=== PATIENT | female | born 1965 | race Two or more races ===

== ENCOUNTER 2017-07-20 14:32 | Emergency (ER) | payer BC ==
[2017-07-20] MEDS: HYDROcodone/APAP 5/325MG 1 TAB TABLET PO (16:16)
== END 2017-07-20 16:32 | disposition home or self-care (01) ==
LOC: ER 14:32
DX: S61.217A Laceration without foreign body of left little finger without damage to nail, initial encounter (principal); E11.9 Type 2 diabetes mellitus without complications; X58.XXXA Exposure to other specified factors, initial encounter; Y93.89 Activity, other specified; Y92.89 Other specified places as the place of occurrence of the external cause; Y99.8 Other external cause status
CPT/HCPCS: 73140; 99284

== ENCOUNTER 2019-07-09 19:58 | Emergency (ER) | payer SELFPAY ==
[~2019-07-09] VITALS: Ht 165.1 cm; Wt 61.7 kg
[~2019-07-09 19:58] MED LIST: CEPH500T PO
[2019-07-09 20:18] VITALS: BP 142/72
[2019-07-09] MEDS ORDERED: CYCLOBENZAPRINE 10 MG TABLET. PO ONE (20:30)
[2019-07-09] MEDS ORDERED: HYDROcodone/APAP 5/325MG 1 TAB TABLET PO ONE (20:30)
--- NOTE | 2019-07-09 21:57 | RAD ---
EXAM: Frontal chest with 3 view right rib series. HISTORY: Right chest pain. COMPARISON: None. FINDINGS: There is a calcified granuloma in the right upper lobe. There are no confluent infiltrates. There is no pneumothorax or pleural effusion. The heart is not enlarged. Cholecystectomy clips are noted. There are no displaced right rib fractures. IMPRESSION: 1. No displaced right rib fractures. Electronically signed by: Michael Bobo MD (07/09/2019 9:54 PM) [facility]
[2019-07-09] MEDS ORDERED: HYDR-3164 PO (22:08)
[2019-07-09] MEDS ORDERED: CYCL10TA2 PO (22:08)
--- NOTE | 2019-07-09 22:08 | PHYS DOC ---
Past Medical History Past Medical History: Diabetes-Type II Past Surgical History: No Surgical History Alcohol Use: None Drug Use: None Adult General Chief Complaint Chief Complaint: ABDOMINAL PAIN HPI HPI Patient is a 54 year old [f__sex] who presents with [] Review of Systems Review of Systems Constitutional: Denies fever or chills [] Eyes: Denies change in visual acuity, redness, or eye pain [] HENT: Denies nasal congestion or sore throat [] Respiratory: Denies cough or shortness of breath [] Cardiovascular: No additional information not addressed in HPI [] GI: Denies abdominal pain, nausea, vomiting, bloody stools or diarrhea [] : Denies dysuria or hematuria [] Musculoskeletal: Denies back pain or joint pain [] Integument: Denies rash or skin lesions [] Neurologic: Denies headache, focal weakness or sensory changes [] Endocrine: Denies polyuria or polydipsia [] All other systems were reviewed and found to be within normal limits, except as documented in this note. Current Medications Current Medications Current Medications Medications (Trade) Dose Ordered Sig/Faye Start Time Stop Time Status Last Admin Dose Admin Acetaminophen/ Hydrocodone Bitart (Lortab 5/325) 1 tab 1X ONCE 07/09/19 20:30 07/09/19 20:31 DC 07/09/19 20:32 1 TAB Cyclobenzaprine HCl (Flexeril) 10 mg 1X ONCE 07/09/19 20:30 07/09/19 20:31 DC 07/09/19 20:32 10 MG Allergies Allergies Allergies Coded Allergies Type Severity Reaction Last Updated Verified No Known Drug Allergies 07/20/17 No Physical Exam Physical Exam Constitutional: Well developed, well nourished, no acute distress, non-toxic appearance. [] HENT: Normocephalic, atraumatic, bilateral external ears normal, oropharynx moist, no oral exudates, nose normal. [] Eyes: PERRLA, EOMI, conjunctiva normal, no discharge. [] Neck: Normal range of motion, no tenderness, supple, no stridor. [] Cardiovascular:Heart rate regular rhythm, no murmur [] Lungs & Thorax: Bilateral breath sounds clear to auscultation [] Abdomen: Bowel sounds normal, soft, no tenderness, no masses, no pulsatile masses. [] Skin: Warm, dry, no erythema, no rash. [] Back: No tenderness, no CVA tenderness. [] Extremities: No tenderness, no cyanosis, no clubbing, ROM intact, no edema. [] Neurologic: Alert and oriented X 3, normal motor function, normal sensory function, no focal deficits noted. [] Psychologic: Affect normal, judgement normal, mood normal. [] Current Patient Data Vital Signs Vital Signs Date Time Temp Pulse Resp B/P (MAP) Pulse Ox O2 Delivery O2 Flow Rate FiO2 07/09/19 20:32 18 97 07/09/19 20:18 97.7 75 142/72 (95) Room Air 97.7 EKG EKG [] Radiology/Procedures Radiology/Procedures [] Course & Med Decision Making Course & Med Decision Making Pertinent Labs and Imaging studies reviewed. (See chart for details) [] Dragon Disclaimer Dragon Disclaimer This electronic medical record was generated, in whole or in part, using a voice recognition dictation system. Departure Departure Impression: Primary Impression: Muscle strain of chest wall Disposition: HOME, SELF-CARE Condition: STABLE Referrals: NO PCP (PCP) Patient Instructions: Muscle Strain Additional Instructions: Discussed results and plan of care with patient. Patient is instructed to follow up with PCP in one to 2 days. Appropriate discharge instructions given to patient to return to the ED or to seek immediate medical evaluation. Patient is instructed to return to the ED if symptoms worsen or if any concerns. Scripts Hydrocodone/Apap 5-325 (NORCO 5-325 TABLET) 1 Each Tablet 1 EACH PO PRN Q6HRS PRN for PAIN, #15 as needed for pain Prov: ALONSO WEBSTER DO 07/09/19 Cyclobenzaprine Hcl (CYCLOBENZAPRINE HCL) 10 Mg Tablet 10 MG PO TID for 7 Days, #21 TAB Prov: ALONSO WEBSTER DO 07/09/19 ALONSO WEBSTER DO Jul 09, 2019 22:08
== END 2019-07-09 22:24 | disposition home or self-care (01) ==
LOC: ER 19:58
DX: S29.011A Strain of muscle and tendon of front wall of thorax, initial encounter (principal); X58.XXXA Exposure to other specified factors, initial encounter; Y93.89 Activity, other specified; Y92.89 Other specified places as the place of occurrence of the external cause; Y99.8 Other external cause status
CPT/HCPCS: 71101; 99284